=== PATIENT | female | born 1935 | race Caucasian/White ===

== ENCOUNTER 2017-01-09 20:24 | Inpatient (IN) | payer MEDICARE, BC ==
[~2017-01-09] VITALS: Ht 162.6 cm; Wt 56.6 kg
--- NOTE | ~2017-01-09 | HP ---
PATIENT'S NAME: ARMEN GIBSON [facility] AGE: 81 Y [address] ROOM: [place] [id number] LOCATION: GPCU ADMIT DATE: 01/09/2017 History & Physical DISCHARGE DATE: FAMILY PHYSICIAN: PHYSICIAN, UNKNOWN ATTENDING PHYSICIAN: MASOUD JOHNS V DATE OF SERVICE: CHIEF COMPLAINT: Fall, back pain. HISTORY OF PRESENT ILLNESS: This is obtained from transferring physicians, ER record as well as residential records. The patient is a 81-year-old female with extensive past medical history as documented below. She tells me that she got upset about "her treatment at the residential," and subsequently tripped and fell. She was taken to the ER in [facility] where she was initially bradycardic and hypotensive. She received IV fluids and atropine and her heart rate normalized and blood pressure became perfusing. I do not have a complete record of what her heart rates and blood pressures were, though her EKG does show atrial fibrillation in the 40s. The patient also was found to have a questionable acute on chronic kidney injury. At this point, she complains of right hip pain where a hematoma is appreciable. She also complains of back pain where she was found to have a moderate L1 endplate fracture on the imaging done at the outside facility. At this point, she also endorses some confusion as to her location, but appears quite alert and oriented to the date, her doctor as well as her medical conditions. REVIEW OF SYSTEMS: All systems have been reviewed and negative aside from pertinent positives mentioned above. PAST MEDICAL HISTORY: Extracted from accompanying medical records: 1. Atrial fibrillation, on Eliquis. 2. Xrc-xmceuie-ufplwwqay diabetes. 3. Chronic kidney disease. 4. Anxiety. 5. Depression. 6. Essential hypertension. PATIENT'S NAME: ARMEN GIBSON [facility] AGE: 81 Y [address] ROOM: [place] [id number] LOCATION: GPCU ADMIT DATE: 01/09/2017 History & Physical DISCHARGE DATE: FAMILY PHYSICIAN: PHYSICIAN, UNKNOWN ATTENDING PHYSICIAN: MASOUD JOHNS V CURRENT MEDICATIONS: The list is quite extensive and currently been organized, but do seem to include Lasix, Xanax, carvedilol, and Bystolic. SOCIAL HISTORY: The patient denies any history of ongoing toxic habits. She resides in [place] [facility]. FAMILY HISTORY: Reviewed and noncontributory due to her advanced age. PHYSICAL EXAMINATION: VITAL SIGNS: At this point, heart rate is in the 60s, blood pressure 130/60, saturating 96% on room air, temperature is slightly low at 95 Fahrenheit. NEUROLOGIC: Grossly nonfocal. EYES: Show pupils are equal and reactive to light. GENERAL: Shows a chronically ill, elderly female, in no acute distress. Alert and oriented x2. LUNGS: Clear to auscultation. HEART: Irregular with normal rate. No appreciable murmurs, gallops, or rubs. ABDOMEN: Soft, nontender, nondistended. : No costovertebral angle tenderness. VASCULAR: Shows 2+ pedal pulses. MUSCULOSKELETAL: Shows tenderness to palpation over lumbosacral spine, localizing to the L1 vertebra. There is also tenderness over a right hip superficial hematoma. PSYCHIATRIC: Appropriate mood, cognition, and affect. LABORATORY DATA: Review of the studies from outside facility is significant for an EKG which shows atrial fibrillation, and 41 beats per minute. Nonspecific ST-segment abnormalities. CT abdomen and pelvis is positive for mild acute compression fracture of superior endplate of L1 with bilateral lower lobe atelectasis. Lab results significant for sodium of 128, creatinine 3.05, BUN is 61 with unknown baseline. ASSESSMENT AND PLAN: This is a 81-year-old female, who is being admitted with: 1. Mechanical fall with L1 compression fracture: we will request spinal surgery evaluation in the morning. 2. Elevated BUN and creatinine. The patient's baseline are unknown, but it does appear that she is in acute kidney injury. We will request baseline labs from her PMD. We will hold off on Lasix and DELMI inhibitors. We will consider gentle hydration and follow renal function. 3. Bradycardia. We will hold off on the patient's amira blockers and PATIENT'S NAME: ARMEN GIBSON [facility] AGE: 81 Y [address] ROOM: [address] [place], [place] [address] LOCATION: GPCU ADMIT DATE: 01/09/2017 History & Physical DISCHARGE DATE: FAMILY PHYSICIAN: PHYSICIAN, UNKNOWN ATTENDING PHYSICIAN: MASOUD JOHNS V restart them as needed in conjunction with improvement in her renal function. 4. Long-term use of anticoagulants. Given the patient's severely impaired renal function, I believe the Eliquis is probably not appropriate for this patient. We will hold off on Eliquis and decide on appropriate anticoagulation once renal function stabilizes. 5. Frh-zebrhdk-yssllaehv diabetes. We will monitor her Accu-Chek's. 6. Symptom control. We will provide her with antiemetics, Ultram as well as moderate doses of opioids for her back pain. We will also get a physical therapy. 7. Additional management will depend on clinical course. Time dedicated to this patient's encounter is 35 minutes. MD AURELIA MANZANO/bianca /[id number] D: [id number] T: [id number] HISTORY & PHYSICAL
--- NOTE | ~2017-01-09 | ECHO ---
Transthoracic Echocardiography Report (TTE) Demographics Patient Name ARMEN GIBSON Date of Study 01/11/2017 Patient Number [id number] Visit Number [id number] Date of 1935 Room Number [address]328 Accession Number [id number] Gender Female Age 81 year(s) Referring Gustavo Fernando Sales Enablement Analyst Monique Hutton RVVikas, Physician MINDI Physician Interpreting Britni Boyd MD Chemical Strength Tester Physician Supervising Ordering Physician Willie Donaldson MD/LESLIE BARRON Nurse Stress Ice Hockey Coach Conclusions Contractility Score Summary Normal Left Ventricular contractility was noted. Summary The estimated left ventricular ejection fraction is 60-65%. Mild concentric left ventricular hypertrophy. Unable to determine diastolic function. The left atrium is severely dilated. The right atrium appears severely dilated. Mild calcification of the mitral valve. Mild mitral regurgitation by color Doppler. Severe tricuspid regurgitation by color Doppler. There is severe pulmonary hypertension. The pulmonary pressure (RVSP) is 64 mmHg. Procedure Type of Study TTE procedure:2D Echocardiogram. Procedure Date Date: 01/11/2017 Start: 02:45 PM Study Location: Inpatient Portable Technical Quality: Adequate visualization Indications:Coronary artery disease and Abnormal ECG. Appropriate Use Criteria: 8 Patient Status: Routine Rhythm: NSR HR: 79 bpm BP: 121/69 mmHg M-Mode/2D Measurements LV Diastolic Dimension: 4.49 cm LV Systolic Dimension: 3.18 cm LV Septum Diastolic: 1.26 cm LV PW Diastolic: 1.4 cm AO Root Dimension: 1.8 cm Cardiac Output: 3.14 l/min AV Cusp Separation: 1.6 cm RV Diastolic Dimension: 2.84 cm LA volume: 77 ml LVOT: 1.6 cm RV Base: 4.3 cm LVOT VTI: 19.8 cm RV Mid: 3.2 cm LV Stroke volume: 39.79 ml Doppler Measurements AV Peak Velocity: 1.38 m/s MV Peak E-Wave: 1.44 m/s AV Peak Gradient: 7.62 mmHg AV Mean Gradient: 5 mmHg MV P1/2t: 66 msec LVOT Peak Velocity: 0.84 m/s TR Velocity:3.73 m/s PV Peak Velocity: 0.72 m/s TR Gradient:55.65 mmHg PV Peak Gradient: 2.07 mmHg Estimated RAP:8 mmHg Estimated PASP: 63.65 mmHg Estimated RVSP: 64 mmHg E' Septal Velocity: 0.08 m/s E' Lateral Velocity: 0.11 m/s Findings Left Ventricle Mild concentric left ventricular hypertrophy. Unable to determine diastolic function. D-shaped septum consistent with pressure and/or volume overload of the right heart Right Ventricle Mild to moderately dilated right ventricle. Left Atrium The left atrium is mildly dilated. There is no evidence of patent foramen ovale or atrial septal defect by color Doppler. Right Atrium The right atrium appears severely dilated. IVC measures 1.78 cm with no inspiratory collapse. Mitral Valve Mild calcification of the mitral valve. Mild mitral regurgitation by color Doppler. Aortic Valve Normal aortic valve structure and function. Tricuspid Valve Severe tricuspid regurgitation by color Doppler. There is severe pulmonary hypertension. The pulmonary pressure (RVSP) is 64 mmHg. Pulmonic Valve Normal pulmonic valve structure and function. Pericardial Effusion No evidence of pericardial effusion. Miscellaneous Visualized portions of the aortic root and ascending aorta appear normal in size. Pleural Effusion No evidence of pleural effusion. Contractility Score LV regional wall motion:(0-Non visualized 1-Normal 2-Hypokinesis 3-Akinesis 4-Dyskinesis 5-Aneurysm) Signature dtt: Oliver Ryder (cardio) dtd: 01/11/17 1445 Physician Self Edit
--- NOTE | ~2017-01-09 | CON ---
PATIENT'S NAME: ARMEN GIBSON [facility] AGE: 81 Y [address] ROOM: [address] [address] LOCATION: GPCU ADMIT DATE: 01/09/2017 Consultation DISCHARGE DATE: FAMILY PHYSICIAN: BRIDGETTE GRIMM MD ATTENDING PHYSICIAN: MASOUD JOHNS V REFERRING PHYSICIAN: ANTHONY COUGHLIN MD CHIEF COMPLAINT: Acute kidney injury on chronic kidney disease. HISTORY OF PRESENT ILLNESS: This is a 81-year-old, female patient, who lives at a [facility] and had a fall from a standing position. She was admitted to [facility] and was discovered that she had L1 osteoporotic compression fracture as well as some bradycardia secondary to atrial fibrillation. On her initial workup over in [facility], her creatinine was noted to be 3.05 on 01/09. The patient does have a history of chronic kidney disease. Back in February 2015, her creatinine is around 1.49, however in May of last year 2015, her creatinine was 1.38 and then early on this year in August of 2016, her creatinine bumped up to 2.24 and then in November of this year her creatinine was measured between 2.12 as well as 2.41. While she was in [facility], she was noted to be bradycardic as well as hypotensive, she was given some fluid boluses prior to transfer here to [facility]. Her sodium on admission in [facility] was also 128, which is hyponatremic for her, she normally run within the all range. Dr. Coughlin was consulted for the L1 compression fracture and he plans on obtaining an MRI later on today. PAST MEDICAL HISTORY: Atrial fibrillation, type 2 diabetes, chronic kidney disease stage 3 to 4, anxiety, depression, hypertension, history of multiple back surgeries. MEDICATIONS: Listed in the patient's chart. Of note, the patient is currently on Neurontin as well as lisinopril from a kidney standpoint. ALLERGIES: NOTED IN THE CHART. SOCIAL HISTORY: The patient currently resides in a [facility] facility. FAMILY HISTORY: Reviewed and noncontributory due to her advanced age. REVIEW OF SYSTEMS: The patient does have some dementia which makes review of systems a little bit PATIENT'S NAME: ARMEN GIBSON [facility] AGE: 81 Y [address] ROOM: [address] [place], [place] [address] LOCATION: GPCU ADMIT DATE: 01/09/2017 Consultation DISCHARGE DATE: FAMILY PHYSICIAN: BRIDGETTE GRIMM MD ATTENDING PHYSICIAN: MASOUD JOHNS, however, pertinent positives are noted above. Otherwise, the patient does endorse some low back pain secondary to compression fracture. An 11-point review of systems was negative other than what is listed above. PHYSICAL EXAMINATION: VITAL SIGNS: Temp 96.6, pulse 68, respirations 18, blood pressure 124/58, currently on 2 L of oxygen, saturating at 96%. GENERAL: The patient is alert, however she is not oriented to person, place, or time. The patient is currently confused. is at bedside and is offering history. HEENT: Head is atraumatic. No scleral icterus noted on examination. No nasal discharge. Oral mucosa is moist. NECK: Supple. Full range of motion. No cervical lymphadenopathy appreciated. External ears grossly intact. CARDIOVASCULAR: Irregular rhythm and regular rate. LUNGS: Coarse breath sounds noted posteriorly. ABDOMEN: Soft, nontender, nondistended. Normal bowel sounds. GENITOURINARY: She has a Lindsey catheter currently in place with dark yellow urine noted in it. VASCULAR: Pedal pulses are 2+ as well as no edema, cyanosis, or clubbing noted. MUSCULOSKELETAL: Localized tenderness over L1 vertebra as well as over the right hip. NEUROLOGIC: Cranial nerves 2 through 12 are grossly intact. The patient moves all four extremities spontaneously. PSYCHIATRIC: The patient is demented as well as currently confused. LABORATORY DATA: Magnesium is 2.3. CMP today showed a sodium of 139, potassium 4.7, chloride 107, CO2 24, anion gap 12.7, glucose 83, calcium 8.6, BUN 56, creatinine 2.2, total protein 6.2, albumin 2.6, total bilirubin 0.7, alkaline phosphatase 143, AST 28, ALT 26, and estimated GFR is 21. PTT is 31. ProTime is 11.4, INR is 1.08. Head CT without contrast showed no acute intracranial abnormalities. ABG on 01/10, showed a pH of 7.3, pCO2 of 48, PO2 of 72, bicarb of 23.6. TSH was 5.62 on admission. ASSESSMENT/PLAN: This is a 81-year-old female with past medical history that is significant for dementia, who presented to [facility] following a L1 compression fracture and who was consulted for the Nephrology Service for acute kidney injury on chronic kidney disease. 1. Acute kidney injury on chronic kidney disease, stage 3 to 4. While she was in [place], her creatinine was bumped at 3.05, however, her creatinine today is at 2.2. It appears that this is around baseline for her, as in August of this past year, her creatinine was at 2.24 and in PATIENT'S NAME: ARMEN GIBSON [facility] AGE: 81 Y [address] ROOM: [place] [address] LOCATION: GPCU ADMIT DATE: 01/09/2017 Consultation DISCHARGE DATE: FAMILY PHYSICIAN: BRIDGETTE GRIMM MD ATTENDING PHYSICIAN: MASOUD JOHNS V November her creatinine was bouncing around between 2.12 and 2.41. We are holding her nephrotoxic drugs such as lisinopril as well as her gabapentin at this present time. We will obtain a renal ultrasound to rule out any renal obstruction contributing to her acute kidney injury. We will also monitor strict in's and out's as well as daily weight. 2. Chronic kidney disease, stage 3 to 4. 3. Bradycardic with hypotension possibly contributed to some of her acute kidney injury as she was bradycardic in the 40s as well as blood pressure was in the 90s over 50s systolically on admission here at [facility]. Her blood pressure and heart rate has since responded appropriately. 4. Atrial fibrillation. We are going to hold beta blockers and maximize her hemodynamics stability. 5. L1 compression fracture. Dr. Coughlin is currently managing. We will await MRI results for further recommendations with Dr. Coughlin. The patient was discussed with Dr. Stevenson. RADHA BARBOSA MD RESIDENT FOR Braden STEVENSON MD AMP/claryl /[id number] d: 01/11/171951 t: 02/03/17 1104, CONSULTATION REPORT
--- NOTE | ~2017-01-09 | CON ---
PATIENT'S NAME: ARMEN GIBSON [facility] AGE: 81 Y [address] ROOM: [address] [address] LOCATION: [facility] ADMIT DATE: 01/09/2017 Consultation DISCHARGE DATE: 01/16/2017 FAMILY PHYSICIAN: Gustavo Fernando MD ATTENDING PHYSICIAN: Cayla Royal DATE OF CONSULTATION: 01/11/2017 REFERRING PHYSICIAN: Juanjo Coughlin MD LOCATION: [facility], room 6328. REFERRING PROVIDER: Cayla Royal M.D. CHIEF COMPLAINT: Palliative Care referral for code status discussion. HISTORY OF PRESENT ILLNESS: The patient is a 81-year-old female who is a resident of [facility] with a recent diagnosis of dementia. Apparently, she was at the [facility], during which time she became upset and subsequently tripped and fell, and had complaints of right hip and back pain, and she was taken to the [place] [facility]. There, she was found to have a L1 compression fracture as well as questionable acute on chronic kidney disease. Thus, she was transferred to [facility] for evaluation of her compression fracture by Neurosurgery. The patient has a history of previous back surgeries approximately 7 years ago, during which time has been reported that she had some neurological deficits postoperatively. also reports the patient has been a resident of the [facility] on and off for the last 3 years. He reports that she was diagnosed with dementia approximately 3 months ago, at which time she was started on Aricept and Namenda. He also reports that the patient was recently seen as an outpatient at [facility] and was started on Cymbalta and Neurontin, and reports that she has also had changes in her medicines over the last few weeks, but is unsure of them all. At the time of my consultation, the patient is quite sleepy, she had received 4 mg of IV morphine prior to getting an MRI earlier this afternoon. The patient is arousable and is able to tell me that she is in the hospital. She denies pain, but does yell out and grimace with repositioning. PREVIOUS OPERATIONS: 1. Hysterectomy. 2. Back surgery. 3. Appendectomy. 4. Cholecystectomy. PATIENT'S NAME: ARMEN GIBSON [facility] AGE: 81 Y [address] ROOM: [address] [place], [place] [address] LOCATION: [facility] ADMIT DATE: 01/09/2017 Consultation DISCHARGE DATE: 01/16/2017 FAMILY PHYSICIAN: Gustavo Fernando MD ATTENDING PHYSICIAN: Cayla Royal 5. Tonsils and adenoids. PAST MEDICAL HISTORY: 1. Chronic back pain. 2. Depression. 3. Hypertension. 4. Atrial fibrillation. 5. Diabetes mellitus type 2. 6. Chronic kidney disease with a creatinine of 2.0 to 2.2 range. 7. Anxiety. 8. Recent diagnosis of dementia per 's report. MEDICATIONS: Home medication list: 1. Tylenol 650 mg as needed. 2. Tylenol 325 mg 3 times a day. 3. Xanax 0.25 mg p.o. twice daily. 4. Xanax 0.25 mg daily as needed. 5. Mylanta as needed. 6. Eliquis 2.5 mg twice daily. 7. Dulcolax suppository as needed. 8. Calcium plus D 1 tablet daily. 9. Coreg 25 mg twice daily. 10. Klonopin 0.5 mg twice daily. 11. Aricept 5 mg daily. 12. Cymbalta 30 mg daily. 13. Lasix 40 mg twice daily. 14. Gabapentin 100 mg 3 times daily. 15. Tussin DM as needed. 16. Levothyroxine 88 mcg daily. 17. Lisinopril 5 mg daily. 18. Milk of magnesia as needed. 19. Melatonin 5 mg at bedtime. 20. Multivitamin 1 tablet daily. 21. Zyprexa 10 mg at bedtime. 22. Prilosec 20 mg daily. 23. MiraLax 17 grams as needed. 24. Sodium chloride/potassium chloride 1 tablet p.o. twice daily. 25. Ultram 50 mg at bedtime and every 4 hours as needed. 26. Ocuvite 1 tablet daily. ALLERGIES: MORPHINE, PENICILLIN, LIDOCAINE, CODEINE, EPINEPHRINE, PENICILLIN, AND SULFA. SOCIAL HISTORY: PATIENT'S NAME: ARMEN GIBSON [facility] AGE: 81 Y [address] ROOM: [address] [address] LOCATION: [facility] ADMIT DATE: 01/09/2017 Consultation DISCHARGE DATE: 01/16/2017 FAMILY PHYSICIAN: Gustavo Fernando MD ATTENDING PHYSICIAN: Cayla Royal The patient is . She is currently living at the [facility]. No history of tobacco or alcohol use. FAMILY HISTORY: Her mother of a stroke at the age of 66. Her father of an NH at the age of 72. She has a sister with diabetes and heart failure. REVIEW OF SYSTEMS: Obtained primarily from chart review and visiting with the patient's . GENERAL: Reports appetite has been fair and aware of any recent weight changes. Reports that she has recently been diagnosed with dementia. No recent fevers. HEENT: No complaints of headache. RESPIRATORY: No complaints of shortness of breath. No cough. CARDIOVASCULAR: No complaints of chest pain. No peripheral edema. GASTROINTESTINAL: No recent nausea, vomiting, diarrhea, or constipation. No difficulties chewing or swallowing. GENITOURINARY: Does have some incontinence of urine at times. MUSCULOSKELETAL: Has a history of chronic back pain. At the current time, the patient does arouse enough to tell me that she does not have any pain. He reports that she is able to ambulate at the shelter independently. NEUROLOGIC: Does have some leg weakness. No seizures. INTEGUMENTARY: Does have bruising from her fall and is prone to frequent skin tears. PSYCHIATRIC: Reports a history of depression and anxiety. Did have a mental health hospitalization after one of her children were born. PHYSICAL EXAMINATION: VITAL SIGNS: Blood pressure 141/96, heart rate 73, temperature 99.0, respirations 20, and O2 saturation 94% on 2 L. GENERAL: Reveals a very drowsy, though arousable; frail-appearing; elderly; white female. She is oriented to being here in the hospital. Does arouse enough to answer a few simple questions. Does not appear to be in any acute respiratory distress. HEENT: Normocephalic and atraumatic. Pupils are equal and reactive to light. Sclerae anicteric. Conjunctivae pink. Tongue and mucous membranes are moist and pink. CARDIOVASCULAR: Heart tones are irregularly irregular. RESPIRATORY: Respirations are regular and nonlabored. Lung sounds are clear to auscultation bilaterally. I am not able to note any rales, rhonchi, or wheezes. GASTROINTESTINAL: Abdomen is soft and nontender. Bowel sounds are present. GENITOURINARY: Lindsey catheter is intact with adequate amounts of yellow urine. MUSCULOSKELETAL: No significant joint deformities. She does yell out in pain PATIENT'S NAME: ARMEN GIBSON [facility] AGE: 81 Y [address] ROOM: [id number] [place], [place] [address] LOCATION: [facility] ADMIT DATE: 01/09/2017 Consultation DISCHARGE DATE: 01/16/2017 FAMILY PHYSICIAN: Gustavo Fernando MD ATTENDING PHYSICIAN: Cayla Royal when repositioned in bed. Peripheral pulses are 1+ bilaterally. There is no clubbing or cyanosis. She does have generalized doughy edema. SKIN: Warm and dry. Does have ecchymotic area over her left hip as well as buttocks and lower back. Multiple skin tears and bruises on extremities. NEUROLOGIC: Moves all 4 extremities spontaneously. Follows a few simple commands. Palliative performance scale is 40%. IMPRESSION AND PLAN: 1. Pain. I believe this is both chronic and perhaps acute on chronic in her back and hip. There is a plan for possible kyphoplasty later this week. In reviewing the patient's pain medication, she has Ultram on board as well as Percocet and 4 mg of p.r.n. morphine. At this point, I would highly recommend decreasing her morphine dose and encouraging nursing staff to use more of the Percocet and tramadol as the patient is quite sedated. 2. Generalized debility. 3. Code status. The patient has a POLST form on the chart that was completed on December 19, 2016, which states DNR and comfort measures only. I did review this with the patient's who states that he was quite upset that when the patient was taken to the [place], they did not do anything to try to help her as this form said comfort measures only. We discussed with the patient's the purpose of the POLST form once again; and discussed code status with him as far as CPR and intubation; and the fact that given her degree of osteoporosis per her x-ray, CPR would not be a good idea in this situation. At this point, after a lengthy discussion and he seems to have a fairly decent understanding of her condition and frail bones he still wishes for her to be a full code. It was quite difficult throughout my conversation to get straight answers from the and he is not the very best of historian. He does report that their daughter will be visiting tomorrow and I will hopefully be able to have further code status and ongoing goals of care conversations with the family at that point. 40 minutes was spent in consultation with this patient and her . Greater than 50% of this time was spent discussing code status and providing education on the patient's condition. He denied any spiritual needs at this time. His questions were answered to his satisfaction. At this point, he states the primary goal is for her pain to be managed. Thank you for allowing me to assist this patient and family. JORDON SIBLEY NP FOR AGATA HENDRICKS MD PATIENT'S NAME: ARMEN GIBSON [facility] AGE: 81 Y [address] ROOM: [place] [address] LOCATION: [facility] ADMIT DATE: 01/09/2017 Consultation DISCHARGE DATE: 01/16/2017 FAMILY PHYSICIAN: Gustavo Fernando MD ATTENDING PHYSICIAN: Cayla Royal/modl /[id number] CC: Cayla Royal MD d: 01/18/17 2217 t: 01/19/17 0916, CONSULTATION REPORT
--- NOTE | ~2017-01-09 | DS ---
PATIENT'S NAME: ARMEN GIBSON [facility] AGE: 81 Y [address] ROOM: [place] [address] LOCATION: [facility] ADMIT DATE: 01/09/2017 Discharge Summary DISCHARGE DATE: 01/16/2017 FAMILY PHYSICIAN: Gustavo Fernando MD ATTENDING PHYSICIAN: Thomas Tapia V PRINCIPLE DISCHARGE DIAGNOSIS: Acute cor pulmonale. SECONDARY DIAGNOSES: 1. Sepsis with bacteremia Staph aureus. 2. Acute renal failure. 3. Acute hypercapnic respiratory failure with hypercapnia and hypoxia. 4. Chronic kidney disease, baseline creatinine around 2. 5. Dementia. 6. Compression fracture. 7. Paroxysmal atrial fibrillation. 8. Hypothyroidism. 9. Dysphagia. 10. Severe pulmonary hypertension with severe valvular disease. CONSULTATIONS: 1. Nephrology, Dr. Reynolds, 01/10/2017. 2. Pulmonology, Dr. Patrick. BRIEF HISTORY: Ms. Gibson is a 81-year-old female who had complex past medical history and had fairly well-controlled heart failure in the months prior to admission, which she had been admitted to [facility] in [facility] for possible [place] early in November. She presented back to [facility] on the with hypotension and bradycardia. She was found to be in acute renal failure. It was thought that her hypotension and bradycardia were related to doses of beta-mike that builds up with her renal failure. She also had altered mental status, which again was thought to be due to pharmacologic effects of multiple psychotropic medications including some that had been added around of the . She then developed another episode of hypotension, did not appear to be septic with a borderline pro-BNP, her lactate level was elevated, but thought to be related to her renal failure. When she did not respond to initial fluid bolus, Pulmonary was consulted and we transferred her to the ICU for what appeared to be cor pulmonale despite pressors and then cautious doses of diuretic, the patient did not have a good response to urine output, she remained in significant pain. PATIENT'S NAME: ARMEN GIBSON [facility] AGE: 81 Y [address] ROOM: [place] [address] LOCATION: [facility] ADMIT DATE: 01/09/2017 Discharge Summary DISCHARGE DATE: 01/16/2017 FAMILY PHYSICIAN: Gustavo Fernando MD ATTENDING PHYSICIAN: Thomas Tapia V After she was admitted to the ICU, one of her blood cultures became positive for Staph aureus and we treated her with Zyvox. She had some improvement in her blood pressure and the plan was to attempt to treat the acute infection and try to get her over the acute illness. Then, her family decided to choose comfort measures because of her severe pain and her multiple problems which may not have been amenable to long-term quality of life. We transferred her to comfort care on 3:20 and the patient initially was at times lucid with a stable blood pressure and transferred her to Med/Surg after the and she was treated on comfort cares until 2150 hours yesterday when she . Pastoral care was offered at that time and she was discharged to the [facility]. KATHY PEREZ MD LM/bianca /[id number] d: 01/18/17219 t: 02/11/17 1836, DISCHARGE SUMMARY
--- NOTE | ~2017-01-09 | CON ---
PATIENT'S NAME: ARMEN GIBSON [facility] AGE: 81 Y [address] ROOM: [place] [address] LOCATION: [facility] ADMIT DATE: 01/09/2017 Consultation DISCHARGE DATE: FAMILY PHYSICIAN: GUSTAVO GRIMM MD ATTENDING PHYSICIAN: MASOUD JOHNS V DATE OF CONSULTATION: 01/10/2017 REFERRING PHYSICIAN: ANTHONY ARELLANO MD CHIEF COMPLAINT: Status post fall, L1 osteoporotic compression fracture, and back pain. HISTORY OF PRESENT ILLNESS: The patient is a 81-year-old female patient, who lives at care home had a fall from a standing position yesterday, was admitted under the hospitalist after she was found to have bradycardia and L1 osteoporotic compression fracture. I met the patient in the presence of her on the mcknight. At the time of the consultation, the patient was sleepy and further history from the patient was unobtainable. From the notes, it appears that the patient has been complaining of increasing low back pain after the fall. The spine investigations were done at [facility] and those showed the L1 compression fracture. The patient does have history of multiple low back surgeries. Those were done 7 years ago. She underwent L3-4 decompression and interbody and posterolateral instrumented arthrodesis. According to the , that was complicated with postoperative neurologic deficits and the patient was taken back to the operating room. The exact operative findings were unavailable. The patient was also complaining of right hip pain. The patient is known to have longstanding weakness on her lower extremities. She is also known to have numbness and tingling on the lower extremities. PAST MEDICAL AND SURGICAL HISTORY: Atrial fibrillation, diabetes, chronic kidney disease, anxiety, depression, hypertension, history of L3-4 interbody, and posterolateral instrumented arthrodesis 7 years ago. MEDICATIONS: Listed in the patient's chart. The patient takes Eliquis for atrial fibrillation. ALLERGIES: LISTED IN THE PATIENT'S CHART. SOCIAL HISTORY: Unobtainable given the patient's level of consciousness. PATIENT'S NAME: ARMEN GIBSON [facility] AGE: 81 Y [address] ROOM: [address] [address] LOCATION: [facility] ADMIT DATE: 01/09/2017 Consultation DISCHARGE DATE: FAMILY PHYSICIAN: GUSTAVO GRIMM MD ATTENDING PHYSICIAN: MASOUD JOHNS V FAMILY HISTORY: Reviewed and noncontributory to the patient's presentation. PHYSICAL EXAMINATION: GENERAL: The patient was sleepy at the time of consultation. However, she was arousable. She opened her eyes to verbal stimulation. The patient was slowly following commands. HEAD: It was atraumatic. Sclerae examination was normal bilaterally. RESPIRATORY: She was not in any respiratory distress. CARDIOVASCULAR: She had palpable pulses on the upper extremities. MUSCULOSKELETAL: She had painful range of motion of the right hip joint. She also had muscle wasting on the lower extremities. NEUROLOGIC: She was alert, oriented to herself and hospital. She followed commands on her upper and lower extremities. She named 3/3 objects. Motor examination on the upper extremities showed no obvious weakness. Motor examination on the lower extremities showed moderate proximal and distal weakness more on the left side. The hip flexion movements were painful. INVESTIGATIONS: 1. Lumbar spine CT scan done on January 09, 2017 at [facility], which I personally reviewed. It showed evidence of severe osteoporosis throughout the spine and pelvis. It showed evidence of previous L3-4 interbody and posterolateral instrumented arthrodesis. It also showed evidence of acute L1 compression fracture. The posterior elements at L1-2 level were intact. It also showed evidence of degenerative joint disease at L4-5 and L5-S1 levels. 2. Cervical spine CT scan, which was done on January 09, 2017. It showed evidence of moderate to severe degenerative joint disease at C5-6 and C6- 7 levels with posterior projecting osteophytes causing moderate to severe stenosis. It also showed evidence of diffuse osteoporosis through the cervical spine. 3. Brain CT scan done on January 09, 2017 which I personally reviewed. It showed age-related diffuse brain atrophy. No evidence of fractures or intracranial hematomas. IMPRESSION AND PLAN: The patient is a 81-year-old female patient, who had a fall from a standing position, has increasing low back pain. Her imaging showed evidence of severe osteoporosis and an acute L1 compression fracture. The patient is symptomatic and her activities are limited due to low back pain. PLAN: 1. MRI lumbar spine to better assess the fracture. 2. I recommended L1 kyphoplasty to stabilize the fracture and treat the low back pain. I discussed that option with the patient's . I clearly PATIENT'S NAME: ARMEN GIBSON [facility] AGE: 81 Y [address] ROOM: [place] [address] [facility] ADMIT DATE: 01/09/2017 Consultation DISCHARGE DATE: FAMILY PHYSICIAN: GUSTAVO GRIMM MD ATTENDING PHYSICIAN: MASOUD JOHNS V indicated that it will be done by Interventional Radiology (Dr. Delmer Mckenzie). I also indicated that since the patient has been on the Eliquis, we will try to arrange the procedure likely in the next 2-3 days. In the meantime, the patient's pain will be treated accordingly by the hospitalist team. The other medical issues will also be treated by the hospitalist team. It was pleasure taking care of this patient and thanks for having us involved. MD STACEY CALHOUN/claryl /[id number] CC: MD Gustavo Diaz MD d: 01/10/17 2208 t: 01/11/17 1015, CONSULTATION REPORT
--- NOTE | ~2017-01-09 | CON ---
PATIENT'S NAME: ARMEN GIBSON [facility] AGE: 81 Y [address] ROOM: [address] [place], [place] [address] LOCATION: [facility] [place] ADMIT DATE: 01/09/2017 Consultation DISCHARGE DATE: 01/16/2017 FAMILY PHYSICIAN: Gustavo Fernando MD ATTENDING PHYSICIAN: Cayla Royal DATE OF CONSULTATION: 01/12/2017 REFERRING PHYSICIAN: Juanjo Coughlin MD INDICATIONS: Acute respiratory failure and hypercapnia. HISTORY OF PRESENT ILLNESS: This is a 81-year-old female, admitted for a mechanical fall to [place] and was found to have an L1 compression fracture along with bradycardia and atrial fibrillation. She was also noted to have JOJO on CKD with creatinine of 3. She became hypotensive as well, and was given a fluid bolus before transferring to [facility] for a higher level of care. Family is at bedside and report that they have noted that she has been more short of breath and progressively drowsy over the last 2 weeks. Upon admission yesterday, she was sleepy, but alert. CT of the brain was negative at that time. She has been getting morphine 4 mg IV push seven doses in the last 36 hours or so. She has been noted to be increasingly drowsy and less responsive. An ABG was performed last night and showed a pH of 7.30, pCO2 of 48, pO2 of 72, and bicarb of 23.6. Saturations were in the low 90s on 3 L to 4 L per nasal cannula at that time. Since then, she has become more hypotensive with increased hypoxia. An ABG performed today showed a pH of 7.22, pCO2 of 59, pO2 of 81, and bicarb of 24.1. An echo was performed on the , which showed septum flattening, moderately dilated RV, and severe pulmonary hypertension. Slowly over the day, she has currently become more hypoxic, and is now currently on BiPAP with FiO2 of 35% and sats at 94%. Review of her intake and output showed a serially positive amount of intake. Review of records also show that she has recently had several adjustments made to her antipsychotic medications, which could also contribute to her changes in drowsiness over the last couple of weeks as family has noted. Currently, because of the need for a BiPAP and decreased level of consciousness, she is unable to answer specific questions. Family is at the bedside, and has tried to provide some input as well as review of the chart. The patient tries to open her eyes to verbal stimuli. PAST MEDICAL HISTORY: Includes 1. Atrial fibrillation. 2. Non-insulin diabetes. 3. CKD. PATIENT'S NAME: ARMEN GIBSON [facility] AGE: 81 Y [address] ROOM: [place] [address] LOC[place]: [facility] [place] ADMIT DATE: 01/09/2017 Consultation DISCHARGE DATE: 01/16/2017 FAMILY PHYSICIAN: Gustavo Fernando MD ATTENDING PHYSICIAN: Cayla Royal 4. Anxiety. 5. Depression. 6. Hypertension. ALLERGIES: SEE AUG. MEDICATIONS: See AUG. FAMILY HISTORY: Negative for any lung disease history. SOCIAL HISTORY: The family reports no history of tobacco use to their knowledge. She lives in a Detention. REVIEW OF SYSTEMS: Unable to do review of systems at this time due to the patient's current condition. PHYSICAL EXAMINATION: VITAL SIGNS: Blood pressure was 88/44, pulse was 52, respirations were 16, temperature was 97.4, and she is 94% on BiPAP at FiO2 of 35%. GENERAL: This is a 81-year-old ill-appearing female, who is very sleepy and drowsy, and appears in moderate acute distress because of her respiratory status. HEENT: Head is normocephalic and atraumatic. Eyes are clear. NECK: Supple. No adenopathy. No carotid bruits. No JVD. LUNGS: Decreased breath sounds at both bases, but clear. HEART: Irregular rate and rhythm with a 2/6 systolic murmur. ABDOMEN: Soft, nontender, and nondistended. Bowel sounds x4. EXTREMITIES: No cyanosis or clubbing with 1+ lower extremity edema. DIAGNOSTIC DATA: Sodium was 139, potassium was 4.6, BUN was 56, and creatinine was 2.2. ProBNP is 11,006. WBC of 7, hemoglobin of 8.3, hematocrit of 27, and platelets of 197. ASSESSMENT: 1. Acute hypercapnic respiratory failure - combination of fluid overload and medication side-effects. 2. Hypotension, most likely due to acute cor pulmonale. 3. Acute cor pulmonale due to fluid overload. 4. Acute kidney injury on chronic kidney disease. PATIENT'S NAME: ARMEN GIBSON [facility] AGE: 81 Y [address] ROOM: [address] [place] [address] [place]ATION: [facility] [place] ADMIT DATE: 01/09/2017 Consultation DISCHARGE DATE: 01/16/2017 FAMILY PHYSICIAN: Gustavo Fernando MD ATTENDING PHYSICIAN: Cayla Royal. Dementia. PLAN: We will continue with BiPAP and repeat an ABG later today. She might need intubation depending on the results. We will transfer her to ICU, and start Levophed as well as IV diuresis. We will follow up on renal function closely. We will also order for a PICC line placement. Thank you for the consult and the opportunity to participate in the patient's care. STEPHANIE BEASLEY APRN FOR MD SACHIN MENSAH/claryl /[id number] d: 01/31/172207 t: 02/15/17 0856, CONSULTATION REPORT
[2017-01-09] MEDS ORDERED: TYLENOL325 MG PO (21:19)
[2017-01-09] MEDS ORDERED: TYLENOL650 MG R (21:20)
[2017-01-09] MEDS ORDERED: PROAIR RESPICL90 MCG INH (21:21)
[2017-01-09] MEDS ORDERED: XANAX0.5 MG PO (21:21)
[2017-01-09] MEDS ORDERED: CARVEDILOL25 MG PO (21:22)
[2017-01-09] MEDS ORDERED: ARICEPT 5 MG5 MG PO (21:25)
[2017-01-09] MEDS ORDERED: DULCOLAX10 MG R (21:25)
[2017-01-09] MEDS ORDERED: MULTIVITAMINS1 EAC2 PO (21:25)
[2017-01-09] MEDS ORDERED: CYMBALTA30 MG PO (21:26)
[2017-01-09] MEDS ORDERED: GABAPENTIN100 MG PO (21:28)
[2017-01-09] MEDS ORDERED: KLONOPIN0.5 MG PO (21:29)
[2017-01-09] MEDS ORDERED: LASIX40 MG PO (21:29)
[2017-01-09] MEDS ORDERED: PRINIVIL (ZESTRI5 MG PO (21:32)
[2017-01-09] MEDS ORDERED: LEVOTHYROXINE88 MCG PO (21:32)
[2017-01-09] MEDS ORDERED: MELATONIN5 M2 PO (21:33)
[2017-01-09] MEDS ORDERED: MIRALAX17 GM PO (21:33)
[2017-01-09] MEDS ORDERED: MILK OF MA400 MG/5 M PO (21:33)
[2017-01-09] MEDS ORDERED: MYLANTA (MAG-AL30 ML PO (21:34)
[2017-01-09] MEDS ORDERED: NAMENDA5 MG PO (21:35)
[2017-01-09] MEDS ORDERED: OCUVITE SOFTGE1 EACH PO (21:36)
[2017-01-09] MEDS ORDERED: ZYPREXA10 MG PO (21:37)
[2017-01-09] MEDS ORDERED: PRILOSEC20 MG PO (21:37)
[2017-01-09] MEDS ORDERED: OYSTER SHELL C1 EAC4 PO (21:39)
[2017-01-09] MEDS ORDERED: THERMOTABS TAB1 EACH PO (21:42)
[2017-01-09] MEDS ORDERED: ULTRAM50 MG PO (21:43)
[2017-01-09] MEDS ORDERED: XANAX0.25 MG PO ×2 (21:44→21:45)
[2017-01-09] MEDS ORDERED: DIABETIC TUSSI PO (21:44)
[2017-01-10] MEDS ORDERED: ELIQUIS2.5 MG PO (03:55)
[2017-01-10 05:45] LABS: BASOPHIL # 0.1 K/uL (0.0-0.2); BASOPHIL % 1.1 %; EOSINOPHIL # 0.6 K/uL (0.0-0.5); EOSINOPHIL % 7.5 %; HEMATOCRIT 28.2 % (33.0-46.0); IMMATURE GRANULOCYTE % 0.3 %; LYMPHOCYTE # 1.1 K/uL (0.8-4.0); LYMPHOCYTE % 14.9 %; MCH 32.6 pg (27.0-34.0); MCHC 31.9 gm/dL (32.0-36.5); MCV 102.2 fl (83.0-98.0); MONOCYTE # 0.7 K/uL (0.0-1.0); MPV 9.5 fl (9.4-12.4); NEUTROPHIL % 67.2 %; NRBC % 0.3 /100WBC (0-0.00); PLATELET COUNT 246 K/uL (150-450); RBC 2.76 M/uL (3.50-5.50); RDW-CV 13.5 % (11.9-14.6); WBC 7.5 K/uL (4.0-11.0)
[2017-01-10 05:50] LABS: INR - (THERAPEUTIC) 1.06 (0.92-1.07); PROTIME 11.1 SECONDS (9.8-11.4); PTT 29 SECONDS (25-32)
[2017-01-10 06:04] LABS: ALBUMIN 2.6 gm/dL (3.5-5.0); ANION GAP 12.8 (10.0-19.0); CREATININE 2.8 mg/dL (0.5-1.1); MAGNESIUM 2.1 mg/dL (1.8-2.6); POTASSIUM 4.8 mMol/L (3.7-5.1); TOTAL BILIRUBIN 0.4 mg/dL (0.0-1.5)
[2017-01-10] MEDS ORDERED: ULTRAM50 MG PO (10:23)
[2017-01-10] MEDS ORDERED: TYLENOL325 MG PO (10:32)
[2017-01-10 19:37] LABS: BICARBONATE 23.6 mmol/L (18.0-23.0); PCO2 48 mmHg (35-45); PO2 72 mmHg (80-90)
[2017-01-11 04:26] LABS: INR - (THERAPEUTIC) 1.08 (0.92-1.07); PROTIME 11.4 SECONDS (9.8-11.4)
[2017-01-11 04:31] LABS: ALBUMIN 2.6 gm/dL (3.5-5.0); ANION GAP 12.7 (10.0-19.0); CALCIUM 8.6 mg/dL (8.5-10.5); CREATININE 2.2 mg/dL (0.5-1.1); POTASSIUM 4.7 mMol/L (3.7-5.1); TOTAL PROTEIN 6.2 g/dL (6.0-8.4)
[2017-01-11 04:32] LABS: TOTAL BILIRUBIN 0.7 mg/dL (0.0-1.5)
[2017-01-11 12:52] LABS: BILIRUBIN URINE NEGATIVE (NEGATIVE); BLOOD URINE 250 /UL (NEGATIVE); COLOR URINE YELLOW (YELLOW); GLUCOSE URINE NEGATIVE (NEGATIVE); KETONE URINE 5 mg/dL (NEGATIVE); LEUKOCYTES URINE 100 /UL (NEGATIVE); NITRITE URINE NEGATIVE (NEGATIVE); PROTEIN URINE 30 mg/dL (NEGATIVE); SPEC GRAVITY URINE 1.015 (1.003-1.035); TURBIDITY URINE 2+ (CLEAR); UROBILINOGEN URINE NORMAL (NORMAL)
[2017-01-11 13:05] LABS: RBC URINE FULL FIELD #/HPF (NEGATIVE); WBC URINE 20-50 #/HPF (NEGATIVE)
[2017-01-11 13:06] LABS: BACTERIA URINE NEGATIVE (NEGATIVE); EPITHELIAL URINE 0-2 #/HPF (NEGATIVE); MUCUS URINE 1+ (NEGATIVE)
[2017-01-11 14:19] LABS: BASOPHIL # 0.1 K/uL (0.0-0.2); BASOPHIL % 0.6 %; EOSINOPHIL # 0.3 K/uL (0.0-0.5); EOSINOPHIL % 3.8 %; HEMATOCRIT 29.2 % (33.0-46.0); HEMOGLOBIN 9.2 g/dL (10.0-15.0); IMMATURE GRANULOCYTE % 0.4 %; LYMPHOCYTE # 1.3 K/uL (0.8-4.0); LYMPHOCYTE % 14.6 %; MCH 33.2 pg (27.0-34.0); MCHC 31.5 gm/dL (32.0-36.5); MCV 105.4 fl (83.0-98.0); MONOCYTE # 0.9 K/uL (0.0-1.0); MONOCYTE % 10.3 %; MPV 9.6 fl (9.4-12.4); NEUTROPHIL # (ANC) 6.3 K/uL (1.8-7.8); NEUTROPHIL % 70.3 %; NRBC % 0 /100WBC (0-0.00); PLATELET COUNT 245 K/uL (150-450); RBC 2.77 M/uL (3.50-5.50); RDW-CV 13.8 % (11.9-14.6)
[2017-01-12 05:02] LABS: ALBUMIN 2.4 gm/dL (3.5-5.0); ANION GAP 13.6 (10.0-19.0); CALCIUM 8.3 mg/dL (8.5-10.5); CREATININE 2.2 mg/dL (0.5-1.1); PHOSPHORUS 4.1 mg/dL (2.5-4.9); POTASSIUM 4.6 mMol/L (3.7-5.1)
[2017-01-12 11:02] LABS: BICARBONATE 24.1 mmol/L (18.0-23.0); PCO2 59 mmHg (35-45); PO2 81 mmHg (80-90)
[2017-01-12 12:58] LABS: BASOPHIL # 0.1 K/uL (0.0-0.2); BASOPHIL % 0.7 %; EOSINOPHIL # 0.4 K/uL (0.0-0.5); EOSINOPHIL % 5.5 %; HEMOGLOBIN 8.3 g/dL (10.0-15.0); IMMATURE GRANULOCYTE % 0.3 %; LYMPHOCYTE # 1.4 K/uL (0.8-4.0); LYMPHOCYTE % 19.9 %; MCH 32.5 pg (27.0-34.0); MCHC 30.7 gm/dL (32.0-36.5); MCV 105.9 fl (83.0-98.0); MONOCYTE # 0.9 K/uL (0.0-1.0); MONOCYTE % 12.7 %; MPV 9.5 fl (9.4-12.4); NEUTROPHIL # (ANC) 4.3 K/uL (1.8-7.8); NEUTROPHIL % 60.9 %; NRBC % 0 /100WBC (0-0.00); PLATELET COUNT 197 K/uL (150-450); RBC 2.55 M/uL (3.50-5.50); RDW-CV 13.7 % (11.9-14.6)
[2017-01-12 13:17] LABS: ALBUMIN 2.8 gm/dL (3.5-5.0)
[2017-01-12 13:18] LABS: TOTAL BILIRUBIN 0.5 mg/dL (0.0-1.5)
[2017-01-12 14:05] LABS: CPK 148 IU/L (21-215)
[2017-01-12 17:14] LABS: BICARBONATE 22.7 mmol/L (18.0-23.0); PCO2 58 mmHg (35-45); PO2 104 mmHg (80-90)
[2017-01-13 04:40] LABS: PCO2 48 mmHg (35-45)
[2017-01-13 04:41] LABS: PO2 135 mmHg (80-90)
[2017-01-13 07:59] LABS: POTASSIUM 4.6 mMol/L (3.7-5.1)
[2017-01-13 08:00] LABS: ANION GAP 14.6 (10.0-19.0); CALCIUM 8.6 mg/dL (8.5-10.5); CREATININE 2.4 mg/dL (0.5-1.1); PHOSPHORUS 4.1 mg/dL (2.5-4.9)
== END 2017-01-16 21:50 | disposition expired | DRG 542 ==
LOC: GMSU 20:24 → GPCU 20:24 → GICU 01-12 14:38 → GMSU 01-14 15:11
PROVIDERS: Internal Medicine; Internal Medicine Critical Care Medicine; Internal Medicine Nephrology; ADMIT Internal Medicine
DX: M80.88XA Other osteoporosis with current pathological fracture, vertebra(e), initial encounter for fracture (principal); A41.01 Sepsis due to Methicillin susceptible Staphylococcus aureus; J96.02 Acute respiratory failure with hypercapnia; N18.4 Chronic kidney disease, stage 4 (severe); N17.9 Acute kidney failure, unspecified; G92 Toxic encephalopathy; R13.10 Dysphagia, unspecified; R65.20 Severe sepsis without septic shock; I13.0 Hypertensive heart and chronic kidney disease with heart failure and stage 1 through stage 4 chronic kidney disease, or unspecified chronic kidney disease; I50.32 Chronic diastolic (congestive) heart failure; Z51.5 Encounter for palliative care; E11.22 Type 2 diabetes mellitus with diabetic chronic kidney disease; G47.33 Obstructive sleep apnea (adult) (pediatric); I48.0 Paroxysmal atrial fibrillation; W19.XXXA Unspecified fall, initial encounter; I27.2 Other secondary pulmonary hypertension; F03.90 Unspecified dementia, unspecified severity, without behavioral disturbance, psychotic disturbance, mood disturbance, and anxiety; E03.9 Hypothyroidism, unspecified; Z66 Do not resuscitate; T43.95XA Adverse effect of unspecified psychotropic drug, initial encounter; F32.9 Major depressive disorder, single episode, unspecified; F41.9 Anxiety disorder, unspecified; Z98.1 Arthrodesis status; I27.81 Cor pulmonale (chronic)
CPT/HCPCS: C9113; J0461; J0696; J1940; J2020; J2060; J2270; J7030; J7040; J7042; J7050; J7060; P9047